=== PATIENT | female | born 1945 | race Caucasian/White ===

== ENCOUNTER → 2017-01-23 | Outpatient (CLI) | payer SELFPAY ==
--- NOTE | 2017-01-23 12:39 | KCIC ---
EXAM: CT CORONARY CALCIUM SCORING. HISTORY: Coronary risk factors. Calcium scoring is requested. Hypercholesterolemia. COMPARISON: None. FINDINGS: Limited noncontrast CT of the chest was performed for coronary calcium scoring. Refer to the worksheets for full detail. Agatston calcium coronary scoring is as follows: LMA: 0. LAD: 2. LCX: 0. RCA: 0. PDA: 0. Total: 2. The included portions of the chest reveal the following. Bone windows reveal no suspicious lesions. Images of the upper abdomen reveal an incidental calcified splenic granuloma. There are no pathologically enlarged mediastinal lymph nodes. There is no pleural or pericardial effusion. The heart is not enlarged. There is mild central bronchiectasis most notable in the lower lobes. There are no acute infiltrates. IMPRESSION: 1. Agatston calcium score 2. 2. Mild basilar predominant central bronchiectasis. Correlate clinically. *One or more of the following individualized dose reduction techniques were utilized for this examination: 1. Automated exposure control. 2. Adjustment of the mA and/or kV according to patient size. 3. Use of iterative reconstruction technique. Electronically signed by: Blanco Nettles MD (01/23/2017 12:35 PM) [id number]
== END | disposition home or self-care (01) ==
LOC: KCIC CT 10:36
PROVIDERS: ATTEND Family Medicine
DX: E78.5 Hyperlipidemia, unspecified (principal)
CPT/HCPCS: 75571

== ENCOUNTER → 2019-04-26 | Outpatient (CLI) | payer OTHER ==
--- NOTE | 2019-04-26 13:44 | KCIC ---
EXAM: Cervical spine, 4 views. HISTORY: Pain. COMPARISON: None. FINDINGS: 4 views of cervical spine are obtained. There is no significant listhesis. The vertebral lewis are normal in height. There is endplate remodeling and left greater than right facet arthropathy at all levels. There is slight disc space narrowing predominantly at C5-C6. IMPRESSION: Multilevel degenerative change. No acute osseous finding. Electronically signed by: Mabel Mandel MD (04/26/2019 1:41 PM) [id number]
== END | disposition home or self-care (01) ==
LOC: KCIC 13:08
PROVIDERS: ATTEND Psychiatry & Neurology Neurology
DX: M47.892 Other spondylosis, cervical region (principal); M48.02 Spinal stenosis, cervical region; M12.88 Other specific arthropathies, not elsewhere classified, other specified site
CPT/HCPCS: 72040